=== PATIENT | female | born 1950 | race Caucasian/White ===

== ENCOUNTER 2019-03-08 16:19 | Emergency (ER) | payer MEDICARE ==
[2019-03-08] MEDS ORDERED: Lidocaine 1% with EPINEPHrine 1:100,000 50 ML MDV SUBCUT ONE (17:08)
--- NOTE | 2019-03-08 17:14 | EDM.PDOC ---
ED HPI GENERAL MEDICAL PROBLEM - General Chief Complaint: Bite:Animal, Insect Stated Complaint: TICK BITE Time Seen by Provider: 03/08/19 17:00 Source of Information: Reports: Patient History Limitations: Reports: No Limitations - History of Present Illness INITIAL COMMENTS - FREE TEXT/NARRATIVE: Alert pleasant 68-year-old female presents with a residual tick bite in her right perineal groin area. The tick was there for a number of days. Patient presents with tick sample it appears to be a would take that was engorged. Patient had some slight surrounding erythema in the area. She denies any fever chills sweats or any systemic symptoms. She's got some localized irritation but no additional concerns. Patient is diabetic and she has an allergy to penicillin. - Related Data Allergies Allergy/AdvReac Type Severity Reaction Status Date / Time Penicillins Allergy Respiratory Verified 03/08/19 16:45 Distress Home Meds: Home Meds Exenatide [Byetta] 5 mcg SQ WEEKLY 03/08/19 [History] Glimepiride [Amaryl] 1.5 mg PO DAILY 03/08/19 [History] Lisinopril 10 mg PO DAILY 03/08/19 [History] amLODIPine Besylate [Norvasc] 10 mg PO DAILY 03/08/19 [History] cephALEXin [Keflex] 250 mg PO Q8H 5 Days #15 cap 03/08/19 [Rx] metFORMIN [Glucophage] 1,000 mg PO BIDMEALS 03/08/19 [History] Past Medical History Cardiovascular History: Reports: Hypertension Respiratory History: Reports: Asthma [employer] HOST History: Reports: Endocrine/Metabolic History: Reports: Diabetes, Type II Oncologic (Cancer) History: Reports: Uterine - Past Surgical History HEENT Surgical History: Reports: Adenoidectomy, Tonsillectomy Female Surgical History: Reports: Hysterectomy Social & Family History - Tobacco Use Smoking Status *Q: Never Smoker - Caffeine Use Caffeine Use: Reports: Coffee - Recreational Drug Use Recreational Drug Use: No ED ROS GENERAL - Review of Systems Review Of Systems: ROS reveals no pertinent complaints other than HPI. ED EXAM, ANIMAL BITE - Physical Exam Exam: See Below Exam Limited By: No Limitations General Appearance: Alert, WD/WN, No Apparent Distress Respiratory/Chest: No Respiratory Distress, Lungs Clear, Normal Breath Sounds Cardiovascular: Normal Peripheral Pulses, Regular Rate, Rhythm GI/Abdominal: Normal Bowel Sounds, Soft, Non-Tender, Other (right mons pubic/ abdominal fold/ 1cm round erythematous lesion with central black speck consistent with residual tick head. ) ED ANIMAL BITE PROCEDURES - Foreign Body Removal Indication:: Tick head removal right periarea/groin. Consent Obtained: Patient Performing Doctor:: Rocio Keith Anesthesia Type: Local (Lidocaine 1% with epi) Findings:: Splinter forceps used to retract tissue and small scalpel was used to remove tick head from tissue. Slight bleeding noted. Pressure bandage applied to skin. Patient tolerated well. Complications:: No Course - Vital Signs Last Recorded V/S: Last Vital Signs Temp 35.9 C 03/08/19 16:44 Pulse 69 03/08/19 16:44 Resp 16 03/08/19 16:44 BP 165/51 H 03/08/19 16:44 Pulse Ox 100 03/08/19 16:44 Departure - Departure Time of Disposition: 17:34 Disposition: Home, Self-Care 01 Clinical Impression: Tick bite of abdominal wall, Diabetes, Elevated blood pressure reading in office with diagnosis of hypertension - Discharge Information Prescriptions: cephALEXin [Keflex] 250 mg PO Q8H 5 Days #15 cap Instructions: Tick Bite Information, Adult, [id number], Diabetes Mellitus and Skin Care, Cellulitis, Adult Referrals: PCP,None [Primary Care Provider] - Additional Instructions: 1. Keflex 250mg given now then chart picker prescription in am and take until gone. 2. Good local wound care, keep topical antibiotic ointment. 3. Tylenol as needed for fever and pain if needed. 4. Watch for signs of infection, if increased pain swelling redness or fever recheck in clinic recommended. - Problem List & Annotations (1) Tick bite of abdominal wall SNOMED Code(s): 864804154 Code(s): S30.861A - INSECT BITE (NONVENOMOUS) OF ABDOMINAL WALL, INIT ENCNTR ; W57.XXXA - BIT/STUNG BY NONVENOM INSECT & OTH NONVENOM ARTHROPODS, INIT Status: Acute Current Visit: Yes (2) Diabetes SNOMED Code(s): 08343229 Code(s): E11.9 - TYPE 2 DIABETES MELLITUS WITHOUT COMPLICATIONS Status: Acute Current Visit: Yes - Assessment/Plan Plan: 1. Keflex 250mg given now then chart picker prescription in am and take until gone. 2. Good local wound care, keep topical antibiotic ointment. 3. Tylenol as needed for fever and pain if needed. 4. Watch for signs of infection, if increased pain swelling redness or fever recheck in clinic recommended.
[2019-03-08] MEDS ORDERED: Cephalexin 250 MG Cap PO ONE (17:20)
== END 2019-03-08 17:39 | disposition home or self-care (01) ==
LOC: JP.ED 16:19
DX: S30.861A Insect bite (nonvenomous) of abdominal wall, initial encounter (principal); E11.9 Type 2 diabetes mellitus without complications; R03.0 Elevated blood-pressure reading, without diagnosis of hypertension; I10 Essential (primary) hypertension; J45.909 Unspecified asthma, uncomplicated; Z79.899 Other long term (current) drug therapy; Z88.0 Allergy status to penicillin; Z79.84 Long term (current) use of oral hypoglycemic drugs
CPT/HCPCS: 99282; A9270